=== PATIENT | female | born 2000 | race Caucasian/White ===

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

== ENCOUNTER 2020-03-31 22:05 | Inpatient (IN) ==
[~2020-03-31 22:05] MED LIST: *HR* FentaNYL (PF) 100 MCG/2 ML VIAL IVP PRN; Famotidine 20 MG/2 ML VIAL IVP PRN; Metoclopramide 10 MG/2 ML VIAL IVP PRN; Naloxone 0.4 MG/ML INJ IVP PRN; Ondansetron 4 MG/2 ML VIAL IVP PRN
[2020-03-31] MEDS ORDERED: Oxytocin 20 units/ LR 1000 mL 20 UNIT/1,000 ML BAG IVC SCH (22:15)
[2020-03-31 22:50] LABS: Basophils % 0.3 %; Eosinophils % 0.1 %; Hematocrit 35.1 % (35.3-44.9); Hemoglobin 10.4 g/dL (11.5-15.4); Immature Granulocytes % 1.1 % (0-4); Lymphocytes # 1.5 K/mcL (0.6-4.6); Lymphocytes % 10.8 %; Mean Corpuscular HGB Conc 29.6 g/dL (31.6-35.5); Mean Corpuscular Hemoglobin 22.3 pg (28.0-33.3); Mean Corpuscular Volume 75.2 fL (83.0-100.0); Mean Platelet Volume 10.8 fL (9.4-12.4); Monocytes # 0.8 K/mcL (0.0-1.3); Monocytes % 5.9 %; Neutrophils # 11.7 K/mcL (1.6-8.9); Platelet Count 291 K/mcL (140-400); Red Blood Count 4.67 M/mcL (3.82-4.97); Red Cell Distribution Width 16.2 % (11.5-14.5); Segmented Neutrophils % 81.8 %; White Blood Count 14.3 K/mcL (4.3-11.1)
[2020-03-31 22:59] LABS: Amphetamine Screen,Urine Negative ng/mL (Cutoff=1000); Barbiturate Screen,Urine Negative ng/mL (Cutoff=200); Benzodiazepines Screen,Urine Negative ng/mL (Cutoff=200); Cannabinoid Screen,Urine Negative ng/mL (Cutoff = 50); Cocaine Screen,Urine Negative ng/mL (Cutoff= 300); Opiate Screen,Urine Negative ng/mL (Cutoff=300); Phencyclidine Screen,Urine Negative ng/mL (Cutoff=25)
[2020-04-01] MEDS: Ringers Solution, Lactated 1,000 ML IVC SCH ×2 (00:03→01:27)
[2020-04-01] MEDS ORDERED: EPHEDrine 50 MG/ML VIAL IVP PRN (00:19)
[2020-04-01] MEDS ORDERED: Epidural Premix (fent/bupiv) 110 ML EP SCH (00:30)
[2020-04-01] MEDS ORDERED: Measles/Mumps/Rubella Vacc 0.5 ML VIAL SQ PRN (07:17)
[2020-04-01] MEDS ORDERED: Oxytocin 20 units/ LR 1000 mL 20 UNIT/1,000 ML BAG IVC SCH (07:17)
[2020-04-01] MEDS: Ibuprofen 600 MG TABLET PO PRN ×2 (07:50→16:03)
[2020-04-01] MEDS: Prenatal Vit/FA 1 EACH TABLET PO SCH (07:50)
[2020-04-01] MEDS: Acetaminophen 325 MG TABLET PO PRN (21:02)
[2020-04-02] MEDS: Ibuprofen 600 MG TABLET PO PRN ×2 (01:50→08:55)
[2020-04-02] MEDS: Acetaminophen 325 MG TABLET PO PRN (05:16)
[2020-04-02 06:29] LABS: Basophils % 0.4 %; Eosinophils # 0.1 K/mcL (0.0-0.6); Hemoglobin 7.5 g/dL (11.5-15.4); Immature Granulocytes % 1.6 % (0-4); Lymphocytes # 2.8 K/mcL (0.6-4.6); Mean Corpuscular Hemoglobin 22.8 pg (28.0-33.3); Mean Platelet Volume 10.9 fL (9.4-12.4); Monocytes # 0.8 K/mcL (0.0-1.3); Monocytes % 7.6 %; Neutrophils # 6.7 K/mcL (1.6-8.9); Platelet Count 214 K/mcL (140-400); Red Blood Count 3.29 M/mcL (3.82-4.97); Red Cell Distribution Width 16.5 % (11.5-14.5); Segmented Neutrophils % 63.4 %; White Blood Count 10.6 K/mcL (4.3-11.1)
[2020-04-02 07:53] VITALS: BP 122/74
[2020-04-02] MEDS: Prenatal Vit/FA 1 EACH TABLET PO SCH (08:55)
== END 2020-04-02 13:33 | disposition home or self-care (01) | DRG 560 ==
LOC: 1NENULAB → 1NENUOBS 04-01 06:48
PROVIDERS: ADMIT Obstetrics & Gynecology; ATTEND Obstetrics & Gynecology

== ENCOUNTER 2021-11-29 00:29 | Observation (INO) ==
[2021-11-29] MEDS ORDERED: Ringers Solution, Lactated 1,000 ML IVC ONE (02:49)
[2021-11-29 03:21] LABS: Candida DNA Not Detected (Not Detect); Gardnerella DNA Not Detected (Not Detect); Trichomonas DNA Not Detected (Not Detect)
[2021-11-29] MEDS ORDERED: Ringers Solution, Lactated 1,000 ML IVC SCH (04:00)
[2021-11-29 05:27] LABS: Basophils # 0.1 K/mcL (0.0-0.2); Basophils % 0.4 %; Eosinophils # 0.1 K/mcL (0.0-0.6); Eosinophils % 0.5 %; Hematocrit 37.1 % (35.3-44.9); Immature Granulocytes % 2.5 % (0-4); Lymphocytes # 2.7 K/mcL (0.6-4.6); Lymphocytes % 20.1 %; Mean Corpuscular HGB Conc 29.6 g/dL (31.6-35.5); Mean Corpuscular Hemoglobin 24.6 pg (28.0-33.3); Mean Platelet Volume 10.6 fL (9.4-12.4); Monocytes # 0.9 K/mcL (0.0-1.3); Monocytes % 6.6 %; Neutrophils # 9.3 K/mcL (1.6-8.9); Platelet Count 254 K/mcL (140-400); Red Blood Count 4.47 M/mcL (3.82-4.97); Red Cell Distribution Width 18.5 % (11.5-14.5); Segmented Neutrophils % 69.9 %; White Blood Count 13.3 K/mcL (4.3-11.1)
[2021-11-29] MEDS ORDERED: EPHEDrine 50 MG/ML VIAL IVP PRN (06:36)
[2021-11-29] MEDS ORDERED: Epidural Premix (fent/bupiv) 110 ML EP SCH (06:45)
== END 2021-11-29 08:30 | disposition home or self-care (01) ==
LOC: 1NENULAB
PROVIDERS: ADMIT Obstetrics & Gynecology; ATTEND Obstetrics & Gynecology

== ENCOUNTER 2021-12-03 08:16 | Inpatient (IN) ==
[2021-12-03] MEDS ORDERED: Ondansetron 4 MG/2 ML VIAL IVP PRN (09:24)
[2021-12-03] MEDS ORDERED: Famotidine 20 MG/2 ML VIAL IVP PRN (09:24)
[2021-12-03] MEDS ORDERED: Naloxone 0.4 MG/ML INJ IVP PRN (09:24)
[2021-12-03] MEDS ORDERED: Metoclopramide 10 MG/2 ML VIAL IVP PRN (09:24)
[2021-12-03] MEDS ORDERED: *HR* Nalbuphine 10 MG/ML AMPUL IV PRN (09:24)
[2021-12-03] MEDS ORDERED: Azithromycin 500 MG in 0.9 % Sodium Chloride 250 ML IVPB PRN (09:24)
[2021-12-03] MEDS ORDERED: Oxytocin 20 units/ LR 1000 mL 20 UNIT/1,000 ML BAG IVC SCH ×2 (09:30→19:21)
[2021-12-03 10:07] LABS: Basophils # 0.1 K/mcL (0.0-0.2); Basophils % 0.5 %; Eosinophils # 0.1 K/mcL (0.0-0.6); Eosinophils % 0.8 %; Hematocrit 38.2 % (35.3-44.9); Hemoglobin 11.9 g/dL (11.5-15.4); Immature Granulocytes % 2.3 % (0-4); Lymphocytes # 2.4 K/mcL (0.6-4.6); Lymphocytes % 20.9 %; Mean Corpuscular HGB Conc 31.2 g/dL (31.6-35.5); Mean Corpuscular Hemoglobin 25.4 pg (28.0-33.3); Mean Corpuscular Volume 81.6 fL (83.0-100.0); Mean Platelet Volume 10.1 fL (9.4-12.4); Monocytes # 0.9 K/mcL (0.0-1.3); Monocytes % 7.6 %; Neutrophils # 7.9 K/mcL (1.6-8.9); Platelet Count 234 K/mcL (140-400); Red Blood Count 4.68 M/mcL (3.82-4.97); Red Cell Distribution Width 18.5 % (11.5-14.5); Segmented Neutrophils % 67.9 %; White Blood Count 11.6 K/mcL (4.3-11.1)
[2021-12-03] MEDS: Ringers Solution, Lactated 1,000 ML IVC SCH ×2 (10:32→12:36)
[2021-12-03 10:53] LABS: Influenza A PCR Negative (Negative); Influenza B PCR Negative (Negative); Resp. Syncytial Virus PCR Negative (Negative); SARS-CoV-2 by PCR (In House) Negative (Negative)
[2021-12-03 11:11] LABS: Amphetamine Screen,Urine Negative ng/mL (Cutoff=1000); Barbiturate Screen,Urine Negative ng/mL (Cutoff=200); Benzodiazepines Screen,Urine Negative ng/mL (Cutoff=200); Cannabinoid Screen,Urine Negative ng/mL (Cutoff = 50); Cocaine Screen,Urine Negative ng/mL (Cutoff= 300); Opiate Screen,Urine Negative ng/mL (Cutoff=300); Phencyclidine Screen,Urine Negative ng/mL (Cutoff=25)
[2021-12-03] MEDS ORDERED: EPHEDrine 50 MG/ML VIAL IVP PRN (12:10)
[2021-12-03] MEDS ORDERED: Epidural Premix (fent/bupiv) 110 ML EP SCH (12:15)
[2021-12-03] MEDS ORDERED: Oxytocin 20 units/ LR 1000 mL 20 UNIT/1,000 ML BAG IVC ONE (19:21)
[2021-12-03] MEDS ORDERED: Rho Immune Globulin 1,500 UNIT SYRINGE IM PRN (19:21)
[2021-12-03] MEDS ORDERED: Lanolin 7 G OINT...G. TP PRN (19:21)
[2021-12-03] MEDS ORDERED: Measles/Mumps/Rubella Vacc 0.5 ML VIAL SQ PRN (19:21)
[2021-12-03] MEDS ORDERED: Ondansetron ODT 4 MG TAB.RAPDIS SL PRN (19:21)
[2021-12-03] MEDS: Acetaminophen 325 MG TABLET PO SCH (19:50)
[2021-12-03] MEDS: Benzocaine/Menthol 56 GM AEROSOL SPRAY TP PRN (19:50)
[2021-12-03] MEDS: Ibuprofen 600 MG TABLET PO SCH (19:50)
[2021-12-04 04:46] LABS: Basophils % 0.2 %; Eosinophils # 0.1 K/mcL (0.0-0.6); Eosinophils % 0.9 %; Hematocrit 34.2 % (35.3-44.9); Hemoglobin 10.4 g/dL (11.5-15.4); Immature Granulocytes % 1.2 % (0-4); Lymphocytes # 2.2 K/mcL (0.6-4.6); Lymphocytes % 16.9 %; Mean Corpuscular HGB Conc 30.4 g/dL (31.6-35.5); Mean Corpuscular Hemoglobin 25.2 pg (28.0-33.3); Mean Corpuscular Volume 82.8 fL (83.0-100.0); Mean Platelet Volume 9.9 fL (9.4-12.4); Monocytes % 7.5 %; Neutrophils # 9.4 K/mcL (1.6-8.9); Platelet Count 206 K/mcL (140-400); Red Blood Count 4.13 M/mcL (3.82-4.97); Red Cell Distribution Width 18.5 % (11.5-14.5); Segmented Neutrophils % 73.3 %; White Blood Count 12.9 K/mcL (4.3-11.1)
[2021-12-04] MEDS: Ibuprofen 600 MG TABLET PO SCH ×2 (05:09→15:42)
[2021-12-04] MEDS: Acetaminophen 325 MG TABLET PO SCH ×2 (05:09→15:43)
[2021-12-04 07:51] VITALS: O2SAT 98
[2021-12-04] MEDS: Benzocaine/Menthol 56 GM AEROSOL SPRAY TP PRN (09:00)
[2021-12-04] MEDS ORDERED: Prenatal Vit/FA 1 EACH TABLET PO SCH (09:00)
[2021-12-04 16:50] VITALS: BP 95/56; PULSE 76; TEMP 98.4
== END 2021-12-04 18:36 | disposition home or self-care (01) | DRG 560 ==
LOC: 1NENULAB 08:16 → 1NENUOBS 19:45
PROVIDERS: ADMIT Obstetrics & Gynecology; ATTEND Obstetrics & Gynecology